=== PATIENT | male | born 1985 | race Caucasian/White ===

== ENCOUNTER 2022-03-24 10:28 | Emergency (ER) | payer SELFPAY ==
[~2022-03-24] VITALS: Ht 182.9 cm; Wt 108.9 kg
[2022-03-24] MEDS ORDERED: Robaxin750 MG PO (13:33)
[2022-03-24] MEDS ORDERED: NAPR500 PO (13:33)
== END 2022-03-24 13:55 | disposition home or self-care (01) ==
LOC: ER 10:28
DX: M54.42 Lumbago with sciatica, left side (principal)
CPT/HCPCS: J1885